=== PATIENT | male | born 1985 | race African-American/Black ===

== ENCOUNTER 2021-10-12 09:38 | Emergency (ER) | payer SELFPAY ==
--- OUTSIDE RECORDS SUMMARY | 2021-10-12 09:41 | XMS REPORT | Continuity of Care Document ---
:1985 Author Organization [facility] t Address [address] [place] [address] Care Team Providers Name Role Phone David Attending Clinician Unavailable SMILEY Attending Clinician Unavailable PAMELA Attending Clinician Unavailable RICKY Attending Clinician Unavailable GABRIEL Attending Clinician Unavailable CHESTER Attending Clinician Unavailable Fran_Roin_JESICA Attending Clinician Unavailable Physician, Primary or Family Admitting Clinician Unavailabigail Hernandez Admitting Clinician Unavailable Osvaldo_JESICA Admitting Clinician Unavailable Payers Payer Name Policy Type Policy Number Effective Date Expiration Date S ource Problems This patient has no known problems. Allergies, Adverse Reactions, Alerts Allergy Allergy Status Severity Reaction(s) Onset Inactive Treating Comm ents Source Name Type Date Date Clinician No Known DA Active U 2018-05 [facility] 06-16 [facility] 00:00: [facility] 00 are [place] No Known DA Active U 2018-05 [facility] Allergie 06-16 [facility] 00:00: [facility] 00 are [place] Medications This patient has no known medications. Procedures This patient has no known procedures. Encounters Start End Encounter Admission Attending Care Care Encounter Source Date/Time Date/Time Type Type Clinicians Facility Department ID 2019-06-17 Inpatient [facility] JULIA [id number] [facility] 07:37:00 [id number] [facility] are [place] 2021-10-11 2021-10-11 Emergency [facility] MED [id number] [place] 17:13:00 18:46:00 Health 2021-03-17 2021-03-17 Outpatient Jaswani_S VFP VFP [id number] [place] 06:29:00 06:29:00 [id number] Family Practic e 2020-12-17 2020-12-18 Emergency SMILEY, [facility] [id number] [place] 00:00:00 00:00:00 AATIF [address] 2020-12-16 2020-12-16 Emergency [facility] [id number] [place] 04:09[facility]-12[facility]16 2020-12-16 Emergency [facility] [id number] [place] 03:18:05 03:18:05 Health 2020-12-15 2020-12-15 Emergency RICKY, [facility] [id number] [place] 00:00:00 00:00:00 MYRNA [address] 2020-12-13 2020-12-13 Emergency OBI, [facility] 06 [id number] [place] 00:00:00 00:00:00 SOFY [address] 2020-11-23 2020-11-23 Emergency CORDELL BRIGGS [facility] [id number] [place] 00:00:00 00:00:[address] 2020-09-10 2020-09-10 Outpatient [facility] [id number] [place] 00:00:00 00:00:[address] 2020-08-20 2020-08-20 Outpatient [facility] [id number] [place] 00:00:00 00:00:[address] 2020-07-21 2020-07-21 Outpatient [place]_ VFP VFP [id number] [facility] 06:54:00 06:54:00 J_WAG [id number] Family Practic e 2017-12-27 2017-12-27 Outpatient [facility] [id number] [place] 00:00:00 00:00:00 Health 2017-12-27 2017-12-27 Outpatient [facility] [id number] [place] 00:00:00 00:00:00 Health 2017-11-29 2017-11-29 Outpatient [facility] [id number] [place] 08:52:48 08:52:48 Health Results Test Description Test Time Test Comments Results Result Comments Source GLUBED 2019-06-17 08:13:00 Test Item Value Reference Range Interpretation Comme nts GLUBED (test code = GLUBED) 79 mg/dL 65-99 N - XR CHEST 1 [id number] 08:08:00Patient Name: ADRIANNA EAST Unit No: [id number] EXAMS: CPT CODE: [id number] XR CHEST 1 V 25825 Chest Radiograph History: cough Comparison: April 17, 2019 Location: R16 A single frontal view of the chest is submitted. The heart appears unchanged in size. Pulmonary vasculature is unremarkable. The visualized lung wiley appear to be free of disease. The bones appear unchanged. IMPRESSION: There is no radiographic evidence of acute car diopulmonary disease. at 0808 Reported and signed by: Néstor Anguiano, [facility]: Rosendo Gaitan MD Technologist: Francesca Reyes Fluoro Time: DAP (Gy m2): Air Kerma (mGy): Trscr Dt/Tm: 06/17/2019 (807) by:[email or web address] Electronic Signature Date/Time: 06/17/2019 (807)Orig Print D/T: S: 06/17/2019 (810) Name: ADRIANNA EAST [facility] Phys: [place] [address] : 1985 Age: 33 [place]: [place] [phone] Loc: [place].ERS Exam Date: 06/17/2019 Status: REG ER PH:FAX: PAGE 1 Signed ReportB-TYPE NATRIURETIC [id number] 04:22:00 Test Item Value Reference Range Interpretation Comments B-TYPE NATRIURETIC PEPTIDE (test 26 pg/mL 0-100 N code = BNP) BASIC METABOLIC [id number] 04:11:00 Test Item Value Reference Range Interpretation Comments SODIUM (test code 137 mmol/L 135-145 N = NA) POTASSIUM (test 3.7 mmol/L 3.5-5.1 N code = K) CHLORIDE (test 104 mmol/L 98-107 N code = CL) CARBON DIOXIDE 30 mmol/L 21-32 N (test code = CO2) ANION GAP (test 6.7 2.0-16.0 N code = GAP) GLUCOSE (test code 102 mg/dL 65-99 H = GLU) BLOOD UREA 13 mg/dL 4-23 N NITROGEN (test code = BUN) GLOMERULAR >=60 max 60-115 N The estimated FILTRATION RATE estimate ml/min glomerula r (test code = GFR) filtration rate is computed usingpatient ra ce, age (>18), sex, and serum creatinin e. If anyof the neede d data elements a re missing the Laboratory trevon ot compute an estimation of t he glomerular filtration rate . CREATININE (test 1.3 mg/dL 0.6-1.5 N code = CREAT) BUN/CREATININE 10.0 12.0-20.0 L RATIO (test code = BUN/CREA) CALCIUM (test code 9.7 mg/dL 8.5-10.1 N = CA) [id number] 04:11:00 Test Item Value Reference Range Interpretation Comments TROPONIN-I (test code = TROPI) < 0.02 ng/mL 0.00-0.07 N - XR CHEST 1 [id number] 04:06:00Patient Name: ADRIANNA EAST Unit No: [id number] EXAMS: CPT CODE: [id number] XR CHEST 1 V 33461 DICTATION LOCATION: 8 HISTORY: Male, 33 years of age with Dyspnea EXAM: CHEST X-RAY, ONE VIEW COMPARISON: 04/15/2019 COMMENT: Frontal view of the chest is provided. No focal infiltrate, consolidation, mass lesion, or effusion is seen. Cardiac silhouette is within normal limits. No acute bony abnormalities. IMPRESSION: No acute infiltrate or effusion and no significant change sinceprior study. at 0406 Reported and signed by: Sofy Ramirez MD CC: Elijah Barfield MD Technologist: Joanne Vee; Brad Menendez Jr Fluoro Time: DAP (Gy m2): Air Kerma (mGy): Trscr Dt/Tm: 04/17/2019 (0406) by:Venkatesh Electronic Signature Date/Time: 04/17/2019 (040)Orig Print D/T: S: 04/17/2019 (0410) Name: ADRIANNA EAST [facility] Phys: [place] [address] : 1985 Age: 33 [place]: [place] [id number] Loc: [place].ERS Exam Date: 04/17/2019 Status: REG ER PH: FAX: PAGE 1 Signed ReportCBC W/AUTO [id number] 03:53:00 Test Item Value Reference Range Interpretation Comments WHITE BLOOD CELL (test code = 13.3 10 3/uL 4.5-11.0 H WBC) RED BLOOD CELL (test code = 5.60 10 6/uL 4.30-5.50 H RBC) HEMOGLOBIN (test code = HGB) 15.4 g/dL 14.0-18.0 N HEMATOCRIT (test code = HCT) 49.0 % 40.0-55.0 N MEAN CELL VOLUME (test code = 88 fL 81-102 N MCV) MEAN CELL HGB (test code = 27.5 pg 26.0-34.0 N MCH) MEAN CELL HGB CONCENTRATION 31.4 % 31.0-37.0 N (test code = MCHC) RED CELL DISTRIBUTION WIDTH 15.5 % 11.5-14.5 H (test code = RDW) RED CELL DISTRIBUTION WIDTH SD 49.8 fL 35.1-43.9 H (test code = RDW-SD) PLATELET COUNT (test code = 396 10 3/uL 150-400 N PLT) MEAN PLATELET VOLUME (test 8.7 fl 9.0-12.6 L code = MPV) NEUTROPHIL % (test code = NT%) 59.4 % 33.0-76.0 N IMMATURE GRANULOCYTE % (test 0.3 % 0.0-1.0 N code = IG%) LYMPHOCYTE % (test code = LY%) 31.1 % 14.0-56.4 N MONOCYTE % (test code = MO%) 7.1 % 0.0-12.9 N EOSINOPHIL % (test code = EO%) 1.9 % 0.0-7.0 N BASOPHIL % (test code = BA%) 0.2 % 0-2.0 N NUCLEATED RBC % (test code = 0.0 % 0-0.2 N NRBC%) NEUTROPHIL # (test code = NT#) 7.88 10 3/uL 1.5-7.0 H IMMATURE GRANULOCYTE # (test 0.040 x10 3/uL 0.000-0.100 N code = IG#) LYMPHOCYTE # (test code = LY#) 4.12 10 3/uL 1.50-4.00 H MONOCYTE # (test code = MO#) 0.94 10 3/uL 0.20-0.80 H EOSINOPHIL # (test code = EO#) 0.25 10 3/uL 0.0-0.5 N BASOPHIL # (test code = BA#) 0.03 10 3/uL 0.0-0.1 N BASIC METABOLIC [id number] 06:21:00 Test Item Value Reference Range Interpretation Comments SODIUM (test code 142 mmol/L 135-145 N = NA) POTASSIUM (test 3.6 mmol/L 3.5-5.1 N code = K) CHLORIDE (test 107 mmol/L 98-107 N code = CL) CARBON DIOXIDE 30 mmol/L 21-32 N (test code = CO2) ANION GAP (test 8.6 2.0-16.0 N code = GAP) GLUCOSE (test code 119 mg/dL 65-99 H = GLU) BLOOD UREA 4 mg/dL 4-23 N NITROGEN (test code = BUN) GLOMERULAR >=60 max 60-115 N The estimated FILTRATION RATE estimate ml/min glomerula r (test code = GFR) filtration rate is computed usingpatient ra ce, age (>18), sex, and serum creatinin e. If anyof the neede d data elements a re missing the Laboratory trevon ot compute an estimation of t he glomerular filtration rate . CREATININE (test 1.0 mg/dL 0.6-1.5 N code = CREAT) BUN/CREATININE 4.0 12.0-20.0 L RATIO (test code = BUN/CREA) CALCIUM (test code 8.8 mg/dL 8.5-10.1 N = CA) [id number] 06:21:00 Test Item Value Reference Range Interpretation Comments TROPONIN-I (test code = TROPI) < 0.02 ng/mL 0.00-0.07 N CBC W/AUTO [id number] 05:57:00 Test Item Value Reference Range Interpretation Comments WHITE BLOOD CELL (test code = 8.0 10 3/uL 4.5-11.0 N WBC) RED BLOOD CELL (test code = 4.88 10 6/uL 4.30-5.50 N RBC) HEMOGLOBIN (test code = HGB) 13.5 g/dL 14.0-18.0 L HEMATOCRIT (test code = HCT) 43.6 % 40.0-55.0 N MEAN CELL VOLUME (test code = 89 fL 81-102 N MCV) MEAN CELL HGB (test code = 27.7 pg 26.0-34.0 N MCH) MEAN CELL HGB CONCENTRATION 31.0 % 31.0-37.0 N (test code = MCHC) RED CELL DISTRIBUTION WIDTH 15.4 % 11.5-14.5 H (test code = RDW) RED CELL DISTRIBUTION WIDTH SD 50.3 fL 35.1-43.9 H (test code = RDW-SD) PLATELET COUNT (test code = 346 10 3/uL 150-400 N PLT) MEAN PLATELET VOLUME (test 8.9 fl 9.0-12.6 L code = MPV) NEUTROPHIL % (test code = NT%) 50.5 % 33.0-76.0 N IMMATURE GRANULOCYTE % (test 0.2 % 0.0-1.0 N code = IG%) LYMPHOCYTE % (test code = LY%) 36.0 % 14.0-56.4 N MONOCYTE % (test code = MO%) 8.2 % 0.0-12.9 N EOSINOPHIL % (test code = EO%) 4.7 % 0.0-7.0 N BASOPHIL % (test code = BA%) 0.4 % 0-2.0 N NUCLEATED RBC % (test code = 0.0 % 0-0.2 N NRBC%) NEUTROPHIL # (test code = NT#) 4.05 10 3/uL 1.5-7.0 N IMMATURE GRANULOCYTE # (test 0.020 x10 3/uL 0.000-0.100 N code = IG#) LYMPHOCYTE # (test code = LY#) 2.89 10 3/uL 1.50-4.00 N MONOCYTE # (test code = MO#) 0.66 10 3/uL 0.20-0.80 N EOSINOPHIL # (test code = EO#) 0.38 10 3/uL 0.0-0.5 N BASOPHIL # (test code = BA#) 0.03 10 3/uL 0.0-0.1 N - XR CHEST 1 [id number] 05:46:00Patient Name: ADRIANNA EAST Unit No: [id number] EXAMS: CPT CODE: [id number] XR CHEST 1 V 30987 EXAM: - XR CHEST 1 V Location code:C3 HISTORY: Dyspnea COMPARISON: None available time of interpretation. FINDINGS: 2 AP views of the chest are provided. Heart size and vascularity are within normal limits. The lungs are clear of focal consolidation. No effusion, pneumothorax, or acute osseous abnormality. IMPRESSION: 1. No radiographic evidence of acute cardiopulmonary process. at 0546 Reported and signed by: Shoaib Grossman MD CC: Self Referred; Homero Cruz MD Technologist: Craig Joseph Time: DAP (Gy m2): Air Kerma (mGy): Trscr Dt/Tm: 04/15/2019 (0546) by:[email or web address] Electronic Signature Date/Time: 04/15/2019 (0546)Orig Print D/T: S: 04/15/2019 (0549) Name: ADRIANNA EAST [facility] Phys: [place] [address] : 1985 Age: 33 [place]: [place] [phone] Loc: [place].ERS Exam Date: 04/15/2019 Status: REG ER PH: FAX: PAGE 1 Signed Report
--- NOTE | 2021-10-12 10:05 | ER ---
Nurse's Notes [facility] Name: Yuki Mcmillan Age: 35 yrs Sex: Male : 1985 Arrival Date: 10/12/2021 Time: 09:41 Bed Waiting Private MD: Diagnosis: Encounter for examination of blood pressure Presentation: 10/12 09:47 Chief complaint: Patient states: he was trying to get into a rehab facility, however ap3 they wouldn't allow him in due to high blood pressure. patient denies headache. Patient states he is needing a prescription medication for high blood pressure, but denies any history associated with high blood pressure. 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 Coronavirus screen: At this time, the client does not indicate any symptoms associated with coronavirus-19. Ebola Screen: No symptoms or risks identified at this time. Initial Sepsis Screen: Does the patient meet any 2 criteria? No. Patient's initial sepsis screen is negative. Does the patient have a suspected source of infection? No. Patient's initial sepsis screen is negative. Risk Assessment: Do you want to hurt yourself or someone else? Patient reports no desire to harm self or others. Onset of symptoms was October 12, 2021. 09:47 Method Of Arrival: Ambulatory ap3 09:47 Acuity: ABBE 4 ap3 Triage Assessment: 09:52 General: Appears in no apparent distress. Behavior is calm, cooperative. Pain: Denies ap3 pain. Neuro: Level of Consciousness is awake, alert, obeys commands, Oriented to person, place, time, situation, Appropriate for age Gait is steady, Speech is normal. Cardiovascular: Denies chest pain, Patient's skin is warm and dry. Respiratory: Airway is patent Respiratory effort is even, unlabored, Respiratory pattern is regular, symmetrical. Historical: - Allergies: 09:50 No Known Allergies; ap3 - Home Meds: 09:50 Trileptal oral [Active]; ap3 - PMHx: 09:50 Bipolar disorder; Asthma; ap3 - Immunization history:: Client reports receiving the 2nd dose of the Covid vaccine. - Social history:: Smoking status: Patient denies any tobacco usage or history of. Patient uses street drugs, Methamphetamine (Meth). Screenin:52 Abuse screen: Denies threats or abuse. Nutritional screening: No deficits noted. ap3 Tuberculosis screening: No symptoms or risk factors identified. Fall Risk None identified. Vital Signs: 09:47 BP 136 / 97; Pulse 71; Resp 16; Temp 98.4(TE); Pulse Ox 99% ; Weight 72.57 kg; Height 6 ap3 ft. (182.88 cm); 09:47 Body Mass Index 21.70 (72.57 kg, 182.88 cm) ap3 ED Course: 09:41 Patient arrived in ED. as 09:43 James Ordonez PA is PHCP. cp 09:43 Ronald Sorto MD is Attending Physician. cp 09:50 Triage completed. ap3 09:52 Arm band placed on left wrist. ap3 09:57 No provider procedures requiring assistance completed. Patient did not have IV access ap3 during this emergency room visit. 09:58 Patient has correct armband on for positive identification. Pulse ox on. NIBP on. ap3 Administered Medications: No medications were administered Medication: 09:58 VIS not applicable for this client. ap3 Outcome: 10:05 Discharge ordered by . cp 10:10 Discharged to home ambulatory, with friend. ap3 10:10 Condition: good 10:10 Discharge instructions given to patient, friend, Instructed on discharge instructions, follow up and referral plans. Demonstrated understanding of instructions, follow-up care. 10:11 Patient left the ED. ap3 Signatures: Lee Ann Rebolledo as James Ordonez PA PA cp Christy Henning, RN RN ap3
--- NOTE | 2021-10-12 10:05 | EDPHYS ---
Physician Documentation [facility] Name: Yuki Mcmillan Age: 35 yrs Sex: Male : 1985 Arrival Date: 10/12/2021 Time: 09:41 Bed Waiting Private MD: ED Physician Ronald Sorto HPI: 10/12 09:59 This 35 yrs old Black Male presents to ER via Ambulatory with complaints of High Blood cp Pressure. 09:59 The patient has elevated blood pressure and discovered this drug rehab center. Onset: cp The symptoms/episode began/occurred today. Associated signs and symptoms: The patient has no apparent associated signs or symptoms. Severity of symptoms: in the emergency department the blood pressure is improved, 136 mm Hg. Historical: - Allergies: 09:50 No Known Allergies; ap3 - Home Meds: 09:50 Trileptal oral [Active]; ap3 - PMHx: 09:50 Bipolar disorder; Asthma; ap3 - Immunization history:: Client reports receiving the 2nd dose of the Covid vaccine. - Social history:: Smoking status: Patient denies any tobacco usage or history of. Patient uses street drugs, Methamphetamine (Meth). ROS: 10:00 Eyes: Negative for injury, pain, redness, and discharge. cp 10:00 Constitutional: Negative for body aches, chills, fever, poor PO intake. 10:00 ENT: Negative for drainage from ear(s), ear pain, sore throat, difficulty swallowing, difficulty handling secretions. 10:00 Cardiovascular: Negative for chest pain, edema, palpitations. 10:00 Respiratory: Negative for cough, shortness of breath, wheezing. 10:00 Abdomen/GI: Negative for abdominal pain, nausea, vomiting, and diarrhea. 10:00 Neuro: Negative for altered mental status, dizziness, headache, syncope, weakness. 10:00 All other systems are negative. Exam: 10:01 Head/Face: Normocephalic, atraumatic. cp 10:01 Constitutional: The patient appears in no acute distress, alert, awake, non-diaphoretic, non-toxic, well developed, well nourished. 10:01 Eyes: Periorbital structures: appear normal, Conjunctiva: normal, no exudate, no injection, Sclera: no appreciated abnormality, Lids and lashes: appear normal, bilaterally. 10:01 ENT: External ear(s): are unremarkable, Nose: is normal, Mouth: Lips: moist, Oral mucosa: moist, Posterior pharynx: Airway: no evidence of obstruction, patent. 10:01 Chest/axilla: Inspection: normal. 10:01 Cardiovascular: Rate: normal, Rhythm: regular, Heart sounds: murmur, not appreciated, Edema: is not appreciated, JVD: is not appreciated. 10:01 Respiratory: the patient does not display signs of respiratory distress, Respirations: normal, no use of accessory muscles, no retractions, labored breathing, is not present, Breath sounds: are clear throughout, no decreased breath sounds, no stridor, no wheezing. 10:01 Abdomen/GI: Exam negative for discomfort, distension, guarding, Inspection: abdomen appears normal. 10:01 Neuro: Orientation: to person, place \T\ time. Mentation: is normal. Vital Signs: 09:47 BP 136 / 97; Pulse 71; Resp 16; Temp 98.4(TE); Pulse Ox 99% ; Weight 72.57 kg; Height 6 ap3 ft. (182.88 cm); 09:47 Body Mass Index 21.70 (72.57 kg, 182.88 cm) ap3 MDM: 10:03 Differential diagnosis: hypertensive crisis, Malignant HTN, CVA, intracerebral cp hemorrhage. Data reviewed: vital signs, nurses notes. Counseling: I had a detailed discussion with the patient and/or guardian regarding: the historical points, exam findings, and any diagnostic results supporting the discharge/admit diagnosis, the need for outpatient follow up, for definitive care, a family practitioner, to return to the emergency department if symptoms worsen or persist or if there are any questions or concerns that arise at home. 10:05 Patient medically screened. cp Administered Medications: No medications were administered Disposition: 18:49 Co-signature as Attending Physician, Ronald Sorto MD. rn Disposition Summary: 10/12/21 10:05 Discharge Ordered Location: Home cp Problem: new cp Symptoms: have improved cp Condition: Stable cp Diagnosis - Encounter for examination of blood pressure cp Followup: cp - With: Private Physician - When: 1 - 2 days - Reason: Recheck today's complaints Discharge Instructions: - Form - Blood Pressure Record Sheet cp - How to Take Your Blood Pressure cp - Discharge Summary Sheet ap3 Forms: - Medication Reconciliation Form cp - Work release form ap3 - Thank You Letter cp - Antibiotic Education cp - Prescription Opioid Use cp Signatures: Ronald Sorto MD MD rn Page, Corey, PA PA cp Prokisch, Amanda RN RN ap3
[2021-10-12 10:17] VITALS: BP 136/97; TEMP 98.4; O2SAT 99
== END 2021-10-12 10:11 | disposition home or self-care (01) ==
LOC: ER 09:38
DX: Z01.30 Encounter for examination of blood pressure without abnormal findings (principal)
CPT/HCPCS: 99283